=== PATIENT | male | born 1950 | race Caucasian/White ===

== ENCOUNTER 2025-10-12 19:12 | Emergency (ER) | payer MEDICARE ==
[2025-10-12 19:38] LABS: BASOPHILS ABSOLUTE AUTO 0.07 K/uL (0.00-0.10); BASOPHILS PERCENT AUTO 0.6 % (0.1-1.3); EOSINOPHILS ABSOLUTE AUTO 0.23 K/uL (0.00-0.40); EOSINOPHILS PERCENT AUTO 2.0 % (0.0-5.4); IMMATURE GRAN ABSOLUTE AUTO 0.04 K/uL (0.00-0.23); IMMATURE GRAN PERCENT AUTO 0.3 % (0.0-0.7); LYMPHOCYTES ABSOLUTE AUTO 1.60 K/uL (0.8-3.3); LYMPHOCYTES PERCENT AUTO 13.8 % (11.4-47.7); MONOCYTES ABSOLUTE AUTO 0.66 K/uL (0.20-0.90); MONOCYTES PERCENT AUTO 5.7 % (3.3-12.6); NEUTROPHILS ABSOLUTE AUTO 8.99 K/uL (1.0-7.6); NEUTROPHILS PERCENT AUTO 77.6 % (40.0-78.1); PLATELET COUNT,PLT 261 K/uL (130-375); RED BLOOD CELL COUNT 5.06 M/uL (4.14-5.76); WHITE BLOOD CELL COUNT,WBC 11.6 K/uL (3.2-11.0)
[2025-10-12] MEDS: Ondansetron 4 MG/2 ML SDV IVPUSH ONE (19:58)
[2025-10-12 19:59] LABS: A/G RATIO 1.1 (1.2-2.2); ALANINE AMINOTRANSFERASE,ALT 30 U/L (12-78); ASPARTATE AMNIOTRANSFERASE,AST 27 U/L (15-37); BILIRUBIN TOTAL 1.1 mg/dL (0.2-1.0); BLOOD UREA NITROGEN,BUN 18 mg/dL (7-18); CARBON DIOXIDE,CO2 28 mmol/L (21-32); CHLORIDE,CL 104 mmol/L (100-108); CREATININE 1.3 mg/dL (0.8-1.3); EST CRCL DRUG DOSING (CG) 49.69 mL/min; ESTIMATED GFR 58 mL/min (>60); GLUCOSE RANDOM 148 mg/dL (74-106); POTASSIUM,K 3.9 mmol/L (3.6-5.2); PROTEIN TOTAL,TP 7.9 g/dL (6.4-8.2); SODIUM,NA 142 mmol/L (140-148)
[2025-10-12 20:13] LABS: APPEARANCE,URINE CLEAR (CLEAR); GLUCOSE,URINE NEGATIVE (NEGATIVE); OCCULT BLOOD,URINE SMALL (NEGATIVE)
[2025-10-12 20:21] LABS: SQUAMOUS EPITHELIAL CELLS,UR NOT SEEN /HPF; UROTHELIAL CELLS,URINE NOT SEEN /HPF
[2025-10-12] MEDS: Sodium Chloride 0.9% 10 ML Syringe FLUSH ONE (21:30)
[2025-10-12] MEDS: Iopamidol 755 Mg/ML 100 ML Bottle IV ONE (21:30)
[2025-10-13 01:12] VITALS: BP 145/85; PULSE 63
[2025-10-13] MEDS: Ketorolac 30 MG/ML SDV IVPUSH ONE (01:33)
== END 2025-10-13 02:00 | disposition home or self-care (01) ==
LOC: JP.ED 19:12
DX: N20.1 Calculus of ureter (principal); I10 Essential (primary) hypertension; Z79.899 Other long term (current) drug therapy
CPT/HCPCS: 36415; 75635; 80053; 81001; 83690; 85025; 86140; 96361; 96374; 96375; 96376; 99284; 99284-25; A9270-GY; G0103; J1171; J1885; J2405; J7030; Q9967